=== PATIENT | female | born 1950 | race Caucasian/White ===

== ENCOUNTER 2022-06-29 17:27 | Emergency (ER) | payer OTHER ==
[~2022-06-29] VITALS: Ht 160 cm; Wt 63.5 kg
[2022-06-29] MEDS ORDERED: LITHIUM CARBON300 M1 (17:48)
[2022-06-29] MEDS ORDERED: TRAZODONE HCL50 MG (17:48)
[2022-06-29] MEDS ORDERED: CLONAZEPAM1 MG (17:48)
[2022-06-29] MEDS ORDERED: LISINOPRIL20 MG (17:49)
[2022-06-29] MEDS ORDERED: [UNRECOGNIZED DRUG - OTHER] (17:50)
== END 2022-06-29 23:48 | disposition home or self-care (01) ==
LOC: ER 17:27
DX: R19.7 Diarrhea, unspecified (principal); Z20.822 Contact with and (suspected) exposure to COVID-19; I10 Essential (primary) hypertension; J90 Pleural effusion, not elsewhere classified